=== PATIENT | male | born 1980 | race Caucasian/White ===

== ENCOUNTER → 2021-06-09 | Outpatient (CLI) | payer SELFPAY | LOC: RT 09:17 | PROVIDERS: ATTEND Nurse Practitioner Family | DX: J44.9 Chronic obstructive pulmonary disease, unspecified (principal) | CPT/HCPCS: 94010; 94726; 94729 ==

== ENCOUNTER 2021-06-11 19:58 | Emergency (ER) | payer SELFPAY ==
[~2021-06-11] VITALS: Ht 165 cm; Wt 116.0 kg
--- NOTE | 2021-06-11 20:40 | ED Abdominal Pain ---
General Chief Complaint: Abdominal/GI Problems Stated Complaint: SIDE PAIN Nursing Triage Note: PT STATES 40 MIN ATTENDING AMBULATORY CARE HE BENT OVER TO TIE HIS SHOES WHEN HE EXPERIENCED CRAMPING ABD. PAIN THAT IS UNCHANGED BY POSITION. PT STATES IT FEELS LIKE CONTRACTIONS. DENIES NVD. DENIES COVID SYMPTOMS. Source of Information: Patient Exam Limitations: No Limitations History of Present Illness Date Seen by Provider: Jun 11, 2021 Time Seen by Provider: 20:30 Initial Comments Patient is a 41-year-old male who presents to the emergency room with a chief complaint of right-sided flank pain onset about 45 minutes prior to arrival. Patient states he was bending over to tie his shoes when he had a sudden onset of sharp aching abdominal discomfort. He denies nausea vomiting or diarrhea. States that he has had some "loose stools" for the last 2 weeks. Nothing black or bloody. Denies any urinary complaints such as dysuria, urgency frequency or hematuria. He denies testicular pain or scrotal swelling. Patient states that he has had a couple of hernia repairs in the right side of his abdomen in the past. He denies feeling feverish or having chills. No Covid concerns. Nothing makes the pain any better or any worse. Describes it as "contractions". He states the muscle feels like it is "spasming". On palpation the patient has the most significant discomfort in the right lower quadrant. He does have a little bit of rebound and involuntary guarding. Bowel sounds are present. All other review of systems reviewed and negative except as stated. Timing/Duration: 1 Hour Severity/Quality: Severe, Aching, Cramping Location: RLQ Radiation: No Radiation Activities at Onset: Activity Allergies and Home Medications Allergies Coded Allergies: azithromycin (Verified Allergy, Unknown, 06/11/21) Patient Home Medication List Home Medication List Reviewed: Yes Review of Systems Review of Systems Constitutional: see HPI EENTM: No Symptoms Reported Respiratory: No Symptoms Reported Cardiovascular: No Symptoms Reported Gastrointestinal: Abdominal Pain Genitourinary: No Symptoms Reported Musculoskeletal: no symptoms reported Skin: no symptoms reported Psychiatric/Neurological: No Symptoms Reported All Other Systems Reviewed Negative Unless Noted: Yes Past Jtswpna-Xcojkv-Gwwfuq Hx Patient Social History Tobacco Use?: No Smoking Status: Former Smoker Substance use?: No Alcohol Use?: No Immunizations Up To Date Influenza Vaccine Up-to-Date: No; Not Current Past Medical History Surgery/Hospitalization HX: two hernia repairs. gerd hx Physical Exam Vital Signs Vital Signs - First Documented 06/11/21 20:17 Temp 36.9 Pulse 83 Resp 26 B/P (MAP) 144/98 (113) Pulse Ox 98 O2 Delivery Room Air Capillary Refill : Less Than 3 Seconds Height/Weight/BMI Height: '" Weight: lbs. oz. kg; 42.00 BMI Method: General Appearance: WD/WN, moderate distress HEENT: PERRL/EOMI Respiratory: lungs clear, normal breath sounds, no respiratory distress, no accessory muscle use Cardiovascular: regular rate, rhythm Gastrointestinal: soft, abnormal bowel sounds (Hypoactive), guarding, rebound, tenderness Extremities: normal range of motion, normal inspection, no pedal edema Back: no CVA tenderness Neurologic/Psychiatric: alert, normal mood/affect, oriented x 3 Skin: normal color, warm/dry Progress/Results/Core Measures Results/Orders Lab Results Laboratory Tests Test 06/11/21 20:39 06/11/21 20:52 Range/Units White Blood Count 9.3 4.3-11.0 10^3/uL Red Blood Count 4.84 4.30-5.52 10^6/uL Hemoglobin 16.1 13.3-17.7 g/dL Hematocrit 46 40-54 % Mean Corpuscular Volume 95 80-99 fL Mean Corpuscular Hemoglobin 33 25-34 pg Mean Corpuscular Hemoglobin Concent 35 32-36 g/dL Red Cell Distribution Width 12.3 10.0-14.5 % Platelet Count 274 130-400 10^3/uL Mean Platelet Volume 10.2 9.0-12.2 fL Immature Granulocyte % (Auto) 0 % Neutrophils (%) (Auto) 60 42-75 % Lymphocytes (%) (Auto) 27 12-44 % Monocytes (%) (Auto) 9 0-12 % Eosinophils (%) (Auto) 4 0-10 % Basophils (%) (Auto) 1 0-10 % Neutrophils # (Auto) 5.6 1.8-7.8 10^3/uL Lymphocytes # (Auto) 2.5 1.0-4.0 10^3/uL Monocytes # (Auto) 0.8 0.0-1.0 10^3/uL Eosinophils # (Auto) 0.3 0.0-0.3 10^3/uL Basophils # (Auto) 0.1 0.0-0.1 10^3/uL Immature Granulocyte # (Auto) 0.0 0.0-0.1 10^3/uL Sodium Level 136 135-145 MMOL/L Potassium Level 4.5 3.6-5.0 MMOL/L Chloride Level 103 98-107 MMOL/L Carbon Dioxide Level 21 21-32 MMOL/L Anion Gap 12 5-14 MMOL/L Blood Urea Nitrogen 16 7-18 MG/DL Creatinine 1.38 H 0.60-1.30 MG/DL Estimat Glomerular Filtration Rate 57 BUN/Creatinine Ratio 12 Glucose Level 91 70-105 MG/DL Calcium Level 9.6 8.5-10.1 MG/DL Corrected Calcium 9.4 8.5-10.1 MG/DL Total Bilirubin 0.5 0.1-1.0 MG/DL Aspartate Amino Transf (AST/SGOT) 48 H 5-34 U/L Alanine Aminotransferase (ALT/SGPT) 76 H 0-55 U/L Alkaline Phosphatase 90 40-136 U/L Total Protein 8.4 H 6.4-8.2 GM/DL Albumin 4.3 3.2-4.5 GM/DL Lipase 12 8-78 U/L Urine Color YELLOW Urine Clarity CLEAR Urine pH 6.0 5-9 Urine Specific Morton >=1.030 1.016-1.022 Urine Protein TRACE H NEGATIVE Urine Glucose (UA) NEGATIVE NEGATIVE Urine Ketones NEGATIVE NEGATIVE Urine Nitrite NEGATIVE NEGATIVE Urine Bilirubin NEGATIVE NEGATIVE Urine Urobilinogen 0.2 < = 1.0 MG/DL Urine Leukocyte Esterase NEGATIVE NEGATIVE Urine RBC (Auto) NEGATIVE NEGATIVE Urine RBC NONE /HPF Urine WBC 0-2 /HPF Urine Squamous Epithelial Cells NONE /HPF Urine Renal Epithelial Cells NONE /HPF Urine Crystals NONE /LPF Urine Bacteria NEGATIVE /HPF Urine Casts NONE /LPF Urine Mucus LARGE H /LPF Urine Culture Indicated NO My Orders Orders - PIOTR CHOW MD Ed Iv/Invasive Line Start (06/11/21 20:38) Cbc With Automated Diff (06/11/21 20:38) Comprehensive Metabolic Panel (06/11/21 20:38) Lipase (06/11/21 20:38) Ua Culture If Indicated (06/11/21 20:38) Fentanyl Inj (Sublimaze Injection) (06/11/21 20:45) Ct Abdomen/Pelvis Wo (06/11/21 21:13) Ketorolac Injection (Toradol Injection) (06/11/21 22:00) Medications Given in ED Current Medications Medications Dose Ordered Sig/Cristiana Route Start Time Stop Time Status Last Admin Dose Admin Fentanyl Citrate 50 mcg ONCE ONCE IVP 06/11/21 20:45 06/11/21 20:46 DC 06/11/21 20:44 50 MCG Vital Signs/I&O 06/11/21 20:17 Temp 36.9 Pulse 83 Resp 26 B/P (MAP) 144/98 (113) Pulse Ox 98 O2 Delivery Room Air Blood Pressure Mean: 113 Progress Progress Note : Time: 21:53 Progress Note Patient reexamined, feels a little bit better. Pain is improved. Is asking for little bit more pain medicine will give him some Toradol. CAT scan has been reviewed and no acute intra-abdominal pathology is noted. Urine is clean and there is no evidence of blood. Renal function is normal CBC is normal. I do not have a specific reason for his abdominal pain but reassurance is given to the patient. No clinical or objective findings to warrant further testing from the emergency department. Patient is advised to follow-up with his primary care doctor. He is encouraged to use ibuprofen or Tylenol at home for pain. Will be sent home with some nausea medicine. All questions are sought and answered. Patient is stable for discharge. Diagnostic Imaging Diagonstic Imaging: CT Plain Films/CT/US/NM/MRI: abdomen Comments [facility]. [place], [place] NAME: SUZIE FLORES [facility] REC#: [id number] PT STATUS: REG ER : 1980 PHYSICIAN: PIOTR CHOW MD ADMIT DATE: 06/11/21/ER Draft Date of Exam:06/11/21 CT ABDOMEN/PELVIS WO INDICATION: Right flank pain and right upper quadrant pain. TECHNIQUE: Multiple contiguous axial images were obtained through the abdomen and pelvis without the use of intravenous contrast. Auto Exposure Controls were utilized during the CT exam to meet ALARA standards for radiation dose reduction. COMPARISON: There is no prior study for comparison. FINDINGS: The visualized portions of the lung bases are clear. There is an old calcified node in the right hilum. There is no pleural fluid or free intraperitoneal air. The liver shows prominent diffuse low-density change compatible with fatty infiltration. Liver is mildly enlarged. The spleen, adrenals and pancreas appear normal. The kidneys, bilaterally, are unremarkable with no stone or hydronephrosis. Gallbladder appears normal. There is no retroperitoneal mass or adenopathy. There is no ascites or abnormal fluid question. Visualized bowel loops, including the appendix, appear normal. There is no pelvic mass or lymphadenopathy. There are small bilateral fat-containing inguinal hernias. Bony structures appear unremarkable. IMPRESSION: Mild hepatomegaly with diffuse fatty infiltration of the liver. No abdominal mass or abnormal fluid collection. No sign of bowel obstruction or focal bowel wall thickening. Normal-appearing appendix. There are small bilateral fat-containing inguinal hernias. Dictated on workstation # [id number] Dict: 06/11/212141 Trans: 06/11/212146 [id number] Interpreted by: DUSTIN MARTINEZ MD Electronically signed by: Departure Impression Primary Impression: Abdominal pain Qualified Codes: R10.31 - Right lower quadrant pain Disposition: 01 HOME, SELF-CARE Condition: Stable Departure-Patient Inst. Decision time for Depature: 21:54 Referrals: [facility] [place] Patient Instructions: Abdominal Pain, Adult ED Add. Discharge Instructions: Drink plenty of fluids to stay well-hydrated. I would advise you to take [id number] ibuprofen, 3 tablets which is 600 mg every 6-8 hours as needed for aches and pains. I have sent you home with a prescription for nausea medication. You can take this every 6-8 hours. If you develop a fever with worsening pain, a change in the quality or location of the pain, black or bloody stools, vomiting or any other emergent concerns please do not hesitate to come back to the emergency room for reevaluation. Follow-up with your primary care physician. PIOTR CHOW MD Jun 11, 2021 20:40
[2021-06-11] MEDS ORDERED: fentaNYL INJ 100 MCG/2 ML AMP IVP ONE (20:45)
[2021-06-11 20:48] LABS: BASOPHILS # (AUTO) 0.1 10^3/uL (0.0-0.1); BASOPHILS % (AUTO) 1 % (0-10); EOSINOPHILS # (AUTO) 0.3 10^3/uL (0.0-0.3); EOSINOPHILS % (AUTO) 4 % (0-10); HEMATOCRIT 46 % (40-54); HEMOGLOBIN 16.1 g/dL (13.3-17.7); LYMPHOCYTES # (AUTO) 2.5 10^3/uL (1.0-4.0); LYMPHOCYTES % (AUTO) 27 % (12-44); MEAN CORPUSCULAR HEMOGLOBIN 33 pg (25-34); MEAN CORPUSCULAR HGB CONC 35 g/dL (32-36); MEAN CORPUSCULAR VOLUME 95 fL (80-99); MEAN PLATELET VOLUME 10.2 fL (9.0-12.2); MONOCYTES # (AUTO) 0.8 10^3/uL (0.0-1.0); MONOCYTES % (AUTO) 9 % (0-12); NEUTROPHILS # (AUTO) 5.6 10^3/uL (1.8-7.8); NEUTROPHILS % (AUTO) 60 % (42-75); PLATELET COUNT 274 10^3/uL (130-400); WHITE BLOOD COUNT 9.3 10^3/uL (4.3-11.0)
[2021-06-11 20:57] LABS: BILIRUBIN,URINE NEGATIVE (NEGATIVE); CLARITY,URINE CLEAR; COLOR,URINE YELLOW; GLUCOSE, URINE (UA) NEGATIVE (NEGATIVE); KETONES,URINE NEGATIVE (NEGATIVE); LEUKOCYTE ESTERASE ,URINE NEGATIVE (NEGATIVE); NITRITE,URINE NEGATIVE (NEGATIVE); PROTEIN,URINE TRACE (NEGATIVE)
[2021-06-11 21:03] LABS: BACTERIA,URINE NEGATIVE /HPF; WBC,URINE 0-2 /HPF
[2021-06-11 21:07] LABS: ALBUMIN 4.3 GM/DL (3.2-4.5); BILIRUBIN,TOTAL 0.5 MG/DL (0.1-1.0); CALCIUM 9.6 MG/DL (8.5-10.1); CREATININE SERUM 1.38 MG/DL (0.60-1.30); POTASSIUM 4.5 MMOL/L (3.6-5.0); TOTAL PROTEIN 8.4 GM/DL (6.4-8.2)
--- NOTE | 2021-06-11 21:47 | Diagnostic Imaging Report ---
INDICATION: Right flank pain and right upper quadrant pain. TECHNIQUE: Multiple contiguous axial images were obtained through the abdomen and pelvis without the use of intravenous contrast. Auto Exposure Controls were utilized during the CT exam to meet ALARA standards for radiation dose reduction. COMPARISON: There is no prior study for comparison. FINDINGS: The visualized portions of the lung bases are clear. There is an old calcified node in the right hilum. There is no pleural fluid or free intraperitoneal air. The liver shows prominent diffuse low-density change compatible with fatty infiltration. Liver is mildly enlarged. The spleen, adrenals and pancreas appear normal. The kidneys, bilaterally, are unremarkable with no stone or hydronephrosis. Gallbladder appears normal. There is no retroperitoneal mass or adenopathy. There is no ascites or abnormal fluid question. Visualized bowel loops, including the appendix, appear normal. There is no pelvic mass or lymphadenopathy. There are small bilateral fat-containing inguinal hernias. Bony structures appear unremarkable. IMPRESSION: Mild hepatomegaly with diffuse fatty infiltration of the liver. No abdominal mass or abnormal fluid collection. No sign of bowel obstruction or focal bowel wall thickening. Normal-appearing appendix. There are small bilateral fat-containing inguinal hernias. Dictated by: Dictated on workstation # [id number]
[2021-06-11] MEDS ORDERED: RX-ONDANSETRON 4 MG ODT (ZOFRAN) PPK #4 PO STA (21:55)
[2021-06-11] MEDS ORDERED: KETOROLAC 30 MG/ML VIAL IVP ONE (22:00)
[2021-06-11 22:04] VITALS: BP 146/89
== END 2021-06-11 22:16 | disposition home or self-care (01) ==
LOC: EDUNIT# 19:58 → ER 20:00
DX: R10.31 Right lower quadrant pain (principal); Z87.891 Personal history of nicotine dependence; Z87.19 Personal history of other diseases of the digestive system
CPT/HCPCS: 36415; 74176; 80053; 81000; 83690; 85025

== ENCOUNTER 2021-12-17 04:07 | Emergency (ER) | payer SELFPAY ==
[~2021-12-17] VITALS: Ht 165 cm; Wt 120.0 kg
[2021-12-17] MEDS ORDERED: KETOROLAC 30 MG/ML VIAL IVP STA (04:19)
[2021-12-17] MEDS ORDERED: LACTATED RINGERS 1,000 ML IV ONE (04:30)
[2021-12-17 04:35] LABS: BASOPHILS # (AUTO) 0.1 10^3/uL (0.0-0.1); BASOPHILS % (AUTO) 1 % (0-10); EOSINOPHILS # (AUTO) 0.6 10^3/uL (0.0-0.3); EOSINOPHILS % (AUTO) 5 % (0-10); HEMATOCRIT 47 % (40-54); HEMOGLOBIN 15.8 g/dL (13.3-17.7); LYMPHOCYTES # (AUTO) 2.4 10^3/uL (1.0-4.0); LYMPHOCYTES % (AUTO) 23 % (12-44); MEAN CORPUSCULAR HEMOGLOBIN 33 pg (25-34); MEAN CORPUSCULAR HGB CONC 34 g/dL (32-36); MEAN CORPUSCULAR VOLUME 96 fL (80-99); MEAN PLATELET VOLUME 10.3 fL (9.0-12.2); MONOCYTES # (AUTO) 0.8 10^3/uL (0.0-1.0); MONOCYTES % (AUTO) 8 % (0-12); NEUTROPHILS # (AUTO) 6.5 10^3/uL (1.8-7.8); NEUTROPHILS % (AUTO) 62 % (42-75); PLATELET COUNT 260 10^3/uL (130-400); WHITE BLOOD COUNT 10.5 10^3/uL (4.3-11.0)
--- NOTE | 2021-12-17 04:38 | ED Back Pain ---
General Chief Complaint: Back Problems Stated Complaint: RT SIDE PAIN Source of Information: Patient (AILYN SHELBY ) History of Present Illness Date Seen by Provider: Dec 17, 2021 Time Seen by Provider: 04:18 Initial Comments PT ARRIVES VIA POV STATES AROUND 2300 TONIGHT, HE WENT TO THE BATHROOM AND "DRY HEAVED" AND HAD A SUDDEN PAIN AND A "POP" IN HIS RIGHT FLANK AREA NO RADIATION OF PAIN PAIN IS WORSE WITH ANY MOVEMENT--STATES 9/10 WITH MOVEMENT, AND IMPROVED WITH REST--2/10 LAYING STILL/NOT MOVING NO NAUSEA/VOMITING/DRY HEAVES SINCE THE PAIN BEGAN NO PARESTHESIAS OR MOTOR DEFICITS NO LOSS OF BOWEL/BLADDER CONTROL OR SADDLE ANESTHESIA NO URINARY SYMPTOMS NO ABDOMINAL PAIN OR TESTICULAR PAIN NO FEVER PT ATE AROUND 2200 TONIGHT--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, [place] FRIES, ONION RINGS, [place] WINGS, [place]ACH[place] HAD NAUSEA AND DRY HEAVED X 1 ABOUT AN HOUR AFTER HE ATE, AND THEN HAD THE ABOVE SYMPTOMS PT HAS NOT TAKEN ANYTHING FOR PAIN AT ANY TIME PT WAS SEEN HERE 06/11/21 FOR RIGHT FLANK PAIN--WORK UP AT THAT TIME WAS NEGATIVE PT HAS HISTORY OF CHRONIC BACK PAIN--NO PROBLEMS LATELY Other Comments 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[facility], 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 (AILYN SHELBY DO) Allergies and Home Medications Allergies Coded Allergies: azithromycin (Verified Allergy, Unknown, 06/11/21) Patient Home Medication List Home Medication List Reviewed: Yes (CONNIE ALLEN MD) Cyclobenzaprine HCl (Cyclobenzaprine HCl) 10 Mg Tablet, 10 MG PO BID PRN for SPASMS Prescribed by: CONNIE ALLEN on 12/17/21611 Ketorolac Tromethamine (Ketorolac Tromethamine) 10 Mg Tablet, 10 MG PO Q8H Prescribed by: CONNIE ALLEN on 12/17/21611 Review of Systems Constitutional: no symptoms reported Respiratory: no symptoms reported Cardiovascular: no symptoms reported Gastrointestinal: see HPI Genitourinary: no symptoms reported Musculoskeletal: see HPI Skin: no symptoms reported Psychiatric/Neurological: No Symptoms Reported (AILYN SHELBY DO) Past Ezbpido-Qaueey-Mynlrh Hx Past Medical History Surgery/Hospitalization HX: RIGHT INGUINAL HERNIA REPAIR X 2; two hernia repairs. gerd hx Surgeries: Yes (RIGHT INGUINAL HERNIA REPAIR X 2) Abdominal Respiratory: No Cardiac: Yes Hypertension Neurological: No Genitourinary: No Gastrointestinal: Yes Gastroesophageal Reflux Musculoskeletal: Yes Chronic Back Pain Endocrine: Yes (OBESITY) HEENT: No (GLASSES) Cancer: No Psychosocial: No Integumentary: No Blood Disorders: No (AILYN SHELBY DO) Physical Exam Vital Signs Vital Signs - First Documented 12/17/21 04:16 Temp 37.0 Pulse 94 Resp 18 B/P (MAP) 152/102 (119) Pulse Ox 97 O2 Delivery Room Air (CONNIE ALLEN MD) Vital Signs Capillary Refill : (AILYN SHELBY DO) Height, Weight, BMI Height: '" Weight: lbs. oz. kg; 42.00 BMI Method: General Appearance: No Apparent Distress, WD/WN, Anxious, Obese Neck: Normal Inspection Cardiovascular: Regular Rate, Rhythm, No Murmur Respiratory: Normal Breath Sounds Gastrointestinal: Non Tender, Soft Back: No CVA Tenderness, No Vertebral Tenderness Extremity: Normal Inspection, No Pedal Edema Neurologic/Psychiatric: Alert, Oriented x3, No Motor/Sensory Deficits Skin: Normal Color, Warm/Dry; No Rash (AILYN SHELBY DO) Progress/Results/Core Measures Results/Orders Lab Results Laboratory Tests Test 12/17/21 04:26 12/17/21 04:36 Range/Units White Blood Count 10.5 4.3-11.0 10^3/uL Red Blood Count 4.85 4.30-5.52 10^6/uL Hemoglobin 15.8 13.3-17.7 g/dL Hematocrit 47 40-54 % Mean Corpuscular Volume 96 80-99 fL Mean Corpuscular Hemoglobin 33 25-34 pg Mean Corpuscular Hemoglobin Concent 34 32-36 g/dL Red Cell Distribution Width 13.0 10.0-14.5 % Platelet Count 260 130-400 10^3/uL Mean Platelet Volume 10.3 9.0-12.2 fL Immature Granulocyte % (Auto) 0 % Neutrophils (%) (Auto) 62 42-75 % Lymphocytes (%) (Auto) 23 12-44 % Monocytes (%) (Auto) 8 0-12 % Eosinophils (%) (Auto) 5 0-10 % Basophils (%) (Auto) 1 0-10 % Neutrophils # (Auto) 6.5 1.8-7.8 10^3/uL Lymphocytes # (Auto) 2.4 1.0-4.0 10^3/uL Monocytes # (Auto) 0.8 0.0-1.0 10^3/uL Eosinophils # (Auto) 0.6 H 0.0-0.3 10^3/uL Basophils # (Auto) 0.1 0.0-0.1 10^3/uL Immature Granulocyte # (Auto) 0.0 0.0-0.1 10^3/uL Sodium Level 137 135-145 MMOL/L Potassium Level 4.1 3.6-5.0 MMOL/L Chloride Level 105 98-107 MMOL/L Carbon Dioxide Level 19 L 21-32 MMOL/L Anion Gap 13 5-14 MMOL/L Blood Urea Nitrogen 20 H 7-18 MG/DL Creatinine 1.05 0.60-1.30 MG/DL Estimat Glomerular Filtration Rate 91 BUN/Creatinine Ratio 19 Glucose Level 114 H 70-105 MG/DL Calcium Level 9.0 8.5-10.1 MG/DL Corrected Calcium 8.9 8.5-10.1 MG/DL Total Bilirubin 0.2 0.1-1.0 MG/DL Aspartate Amino Transf (AST/SGOT) 20 5-34 U/L Alanine Aminotransferase (ALT/SGPT) 52 0-55 U/L Alkaline Phosphatase 90 40-136 U/L Total Protein 7.9 6.4-8.2 GM/DL Albumin 4.1 3.2-4.5 GM/DL Urine Color YELLOW Urine Clarity CLEAR Urine pH 5.5 5-9 Urine Specific Deshler >=1.030 1.016-1.022 Urine Protein NEGATIVE NEGATIVE Urine Glucose (UA) NEGATIVE NEGATIVE Urine Ketones NEGATIVE NEGATIVE Urine Nitrite NEGATIVE NEGATIVE Urine Bilirubin NEGATIVE NEGATIVE Urine Urobilinogen 0.2 < = 1.0 MG/DL Urine Leukocyte Esterase NEGATIVE NEGATIVE Urine RBC (Auto) NEGATIVE NEGATIVE Urine RBC NONE /HPF Urine WBC 0-2 /HPF Urine Squamous Epithelial Cells RARE /HPF Urine Crystals NONE /LPF Urine Bacteria TRACE /HPF Urine Casts NONE /LPF Urine Mucus NEGATIVE /LPF Urine Culture Indicated NO Urine Opiates Screen NEGATIVE NEGATIVE Urine Oxycodone Screen NEGATIVE NEGATIVE Urine Methadone Screen NEGATIVE NEGATIVE Urine Propoxyphene Screen NEGATIVE NEGATIVE Urine Barbiturates Screen NEGATIVE NEGATIVE Ur Tricyclic Antidepressants Screen NEGATIVE NEGATIVE Urine Phencyclidine Screen NEGATIVE NEGATIVE Urine Amphetamines Screen NEGATIVE NEGATIVE Urine Methamphetamines Screen NEGATIVE NEGATIVE Urine Benzodiazepines Screen NEGATIVE NEGATIVE Urine Cocaine Screen NEGATIVE NEGATIVE Urine Cannabinoids Screen NEGATIVE NEGATIVE (CONNIE ALLEN MD) Medications Given in ED Current Medications Medications Dose Ordered Sig/Cristiana Route Start Time Stop Time Status Last Admin Dose Admin Lactated Ringer's 1,000 ml @ 0 mls/hr Q0M ONCE IV 12/17/21 04:30 12/17/21 04:31 DC 12/17/21 04:30 0 MLS/HR (CONNIE ALLEN MD) Vital Signs/I&O 12/17/21 12/17/21 04:16 06:43 Temp 37.0 Pulse 94 77 Resp 18 18 B/P (MAP) 152/102 (119) 111/84 Pulse Ox 97 96 O2 Delivery Room Air Room Air (CONNIE ALLEN MD) Progress Progress Note : Progress Note GIVEN IV FLUIDS AND TORADOL (AILYN SHELBY DO) Progress Note : Progress Note Received the patient in signout in the AM pending CT abd/pelv read. Patient resting comfortably. The CT showed nothing acute that would be the cause of his pain. He is feeling better. I believe he is stable for discharge with outpatient follow-up which he is agreeable to. Of note, the CT did show a right lower lung pulmonary nodule. I discussed this with the patient and discussed that he needs to talk to his primary care doctor about this and get repeat CT scan within 6 months to be sure it is stable. The patient is agreeable to this. (CONNIE ALLNE MD) Diagnostic Imaging Diagonstic Imaging: CT (abd/pelv, lumbar spine) Comments [facility] [place], [place] NAME: SUZIE FLORES [facility] REC#: [id number] PT STATUS: REG ER : 1980 PHYSICIAN: AILYN SHELBY DO ADMIT DATE: 12/17/21/ER Draft Date of Exam:12/17/21 CT ABD/PELVIS WO(KIDNEY STONE) EXAMINATION: CT abdomen and pelvis without contrast. TECHNIQUE: Multiple contiguous axial images were obtained through the abdomen and pelvis without the use of intravenous contrast. All CT scans use one or more of the following dose optimizing techniques: automated exposure control, MA and/or KvP adjustment based on patient size and exam type or iterative reconstruction. HISTORY: Flank pain COMPARISON: 06/11/2021 FINDINGS: Limited views of the lower thorax show a 7 mm average diameter right lower lobe pulmonary nodule which is more conspicuous than the prior exam. Liver is moderately steatotic. No focal liver lesions are seen. There is no biliary ductal dilation. Gallbladder is normal. Pancreas is normal. Spleen is normal. Adrenal glands are normal. The kidneys are normal. There is no hydronephrosis. Urinary bladder is normal. No renal or ureteral stones. Bowel is normal in caliber without obstruction or inflammation. There is diverticulosis without diverticulitis. The appendix is normal. No free fluid or air. No abdominal or pelvic lymphadenopathy. Aorta is normal in caliber without aneurysm. There are no suspicious osseus lesions. IMPRESSION: 1. No renal or ureteral stones. 2. Moderate hepatic steatosis. 3. Right lower lobe 7 mm pulmonary nodule. According to the Fleischner Society guidelines: Recommend CT at 6-12 months and then again at 18-24 months (the second CT is optional in a low risk patient) Dictated on workstation # [id number] Dict: 12/17/21 0602 Trans: 12/17/21 0605 ADONIS [id number] Interpreted by: EDGAR ASTUDILLO MD Electronically signed by: [address] [address] [place], [place] NAME: SUZIE FLORES [facility] REC#: [id number] PT STATUS: REG ER : 1980 PHYSICIAN: AILYN SHELBY DO ADMIT DATE: 12/17/21/ER Draft Date of Exam:12/17/21 CT ABD/PELVIS WO(KIDNEY STONE) EXAMINATION: CT abdomen and pelvis without contrast. TECHNIQUE: Multiple contiguous axial images were obtained through the abdomen and pelvis without the use of intravenous contrast. All CT scans use one or more of the following dose optimizing techniques: automated exposure control, MA and/or KvP adjustment based on patient size and exam type or iterative reconstruction. HISTORY: Flank pain COMPARISON: 06/11/2021 FINDINGS: Limited views of the lower thorax show a 7 mm average diameter right lower lobe pulmonary nodule which is more conspicuous than the prior exam. Liver is moderately steatotic. No focal liver lesions are seen. There is no biliary ductal dilation. Gallbladder is normal. Pancreas is normal. Spleen is normal. Adrenal glands are normal. The kidneys are normal. There is no hydronephrosis. Urinary bladder is normal. No renal or ureteral stones. Bowel is normal in caliber without obstruction or inflammation. There is diverticulosis without diverticulitis. The appendix is normal. No free fluid or air. No abdominal or pelvic lymphadenopathy. Aorta is normal in caliber without aneurysm. There are no suspicious osseus lesions. IMPRESSION: 1. No renal or ureteral stones. 2. Moderate hepatic steatosis. 3. Right lower lobe 7 mm pulmonary nodule. According to the Fleischner Society guidelines: Recommend CT at 6-12 months and then again at 18-24 months (the second CT is optional in a low risk patient) Dictated on workstation # [id number] Dict: 12/17/21 0602 Trans: 12/17/21 0605 ADONIS [id number] Interpreted by: EDGAR ASTUDILLO MD Electronically signed by: (CONNIE ALLEN MD) Departure Impression Primary Impression: Flank pain Additional Impression: Pulmonary nodule Disposition: HOME, SELF-CARE Condition: Stable Departure-Patient Inst. Decision time for Depature: 06:23 (CONNIE ALLEN MD) Referrals: LISSETTE COONEY (PCP) Primary Care Physician [facility] (Family) Primary Care Physician Patient Instructions: Flank Pain (DC), Pulmonary Nodule Add. Discharge Instructions: You were seen in the emergency department for lower back/flank pain. Your labs look good and your imaging including a CT scan looks good without any evidence of significant abnormality. Take the ketorolac every 8 hours for the next 3 days with Tylenol 1000 mg every 6-8 hours. I also wrote for a muscle relaxer which you can take. This can make you sleepy which I would recommend not driving with it or operating heavy machinery. After you run out of the ketorolac if you still having pain you can switch it for [id number] ibuprofen 600 mg every 6 hours. Do not take any ibuprofen, naproxen, or aspirin while you are taking the ketorolac though. You also have a 7 mm pulmonary nodule in your right lower lung. This was just accidentally found when we were looking for the cause of your back pain. You need to follow back up with your regular doctor and have a repeat CT scan in 6 months to see if this changes in size. If it gets significantly bigger than the concern is that could be cancerous. Scripts Cyclobenzaprine HCl (Cyclobenzaprine HCl) 10 Mg Tablet 10 MG PO BID PRN for SPASMS for 7 Days, #14 TAB Prov: CONNIE ALLEN MD 12/17/21 Ketorolac Tromethamine (Ketorolac Tromethamine) 10 Mg Tablet 10 MG PO Q8H for 3 Days, #9 TAB Prov: CONNIE ALLEN MD 12/17/21 Work/School Note: Work Release Form Date Seen in the Emergency Department: Dec 17, 2021 Return to Work: Dec 18, 2021 Restrictions: No Restrictions AILYN SHELBY DO Dec 17, 2021 04:38 CONNIE ALLEN MD Dec 17, 2021 06:12
[2021-12-17 04:43] LABS: BILIRUBIN,URINE NEGATIVE (NEGATIVE); CLARITY,URINE CLEAR; COLOR,URINE YELLOW; GLUCOSE, URINE (UA) NEGATIVE (NEGATIVE); KETONES,URINE NEGATIVE (NEGATIVE); LEUKOCYTE ESTERASE ,URINE NEGATIVE (NEGATIVE); NITRITE,URINE NEGATIVE (NEGATIVE); PH,URINE 5.5 (5-9); PROTEIN,URINE NEGATIVE (NEGATIVE)
[2021-12-17 04:52] LABS: ALBUMIN 4.1 GM/DL (3.2-4.5); POTASSIUM 4.1 MMOL/L (3.6-5.0)
[2021-12-17 04:55] LABS: TOTAL PROTEIN 7.9 GM/DL (6.4-8.2)
[2021-12-17 04:57] LABS: BILIRUBIN,TOTAL 0.2 MG/DL (0.1-1.0)
[2021-12-17 04:58] LABS: CREATININE SERUM 1.05 MG/DL (0.60-1.30)
[2021-12-17 05:03] LABS: AMPHETAMINE SCREEN, URINE NEGATIVE (NEGATIVE); BARBITURATE SCREEN URINE NEGATIVE (NEGATIVE); BENZODIAZEPINES SCREEN URINE NEGATIVE (NEGATIVE); CANNABINOID SCREEN, URINE NEGATIVE (NEGATIVE); COCAINE SCREEN URINE NEGATIVE (NEGATIVE); METHADONE STAT NEGATIVE (NEGATIVE); METHAMPHETAMINE SCREEN URINE S NEGATIVE (NEGATIVE); OPIATE SCREEN URINE NEGATIVE (NEGATIVE); TRICYCLIC ANTIDEPRESSANTS SCRE NEGATIVE (NEGATIVE)
[2021-12-17 05:04] LABS: OXYCODONE STAT NEGATIVE (NEGATIVE); PROPOXYPHENE STAT NEGATIVE (NEGATIVE)
[2021-12-17 05:18] LABS: BACTERIA,URINE TRACE /HPF; SQUAMOUS EPITHELIAL CELL,UR RARE /HPF; WBC,URINE 0-2 /HPF
--- NOTE | 2021-12-17 06:03 | Diagnostic Imaging Report ---
EXAMINATION: CT lumbar spine without contrast. TECHNIQUE: Multiple contiguous axial images were obtained through the lumbar spine without the use of intravenous contrast. Sagittal and coronal reformations were then performed. All CT scans use one or more of the following dose optimizing techniques: automated exposure control, MA and/or KvP adjustment based on patient size and exam type or iterative reconstruction. HISTORY: Back pain COMPARISON: None available. FINDINGS: The alignment of the lumbar spine is normal. Vertebral body heights are normal and no fracture is seen. Facet joints are normal. Disk heights are normal. There is no spinal canal stenosis. Limited views of the abdomen and pelvis show no soft tissue abnormality. The aorta is normal. IMPRESSION: 1. No lumbar spine fracture. Dictated by: Dictated on workstation # [id number]
--- NOTE | 2021-12-17 06:06 | Diagnostic Imaging Report ---
EXAMINATION: CT abdomen and pelvis without contrast. TECHNIQUE: Multiple contiguous axial images were obtained through the abdomen and pelvis without the use of intravenous contrast. All CT scans use one or more of the following dose optimizing techniques: automated exposure control, MA and/or KvP adjustment based on patient size and exam type or iterative reconstruction. HISTORY: Flank pain COMPARISON: 06/11/2021 FINDINGS: Limited views of the lower thorax show a 7 mm average diameter right lower lobe pulmonary nodule which is more conspicuous than the prior exam. Liver is moderately steatotic. No focal liver lesions are seen. There is no biliary ductal dilation. Gallbladder is normal. Pancreas is normal. Spleen is normal. Adrenal glands are normal. The kidneys are normal. There is no hydronephrosis. Urinary bladder is normal. No renal or ureteral stones. Bowel is normal in caliber without obstruction or inflammation. There is diverticulosis without diverticulitis. The appendix is normal. No free fluid or air. No abdominal or pelvic lymphadenopathy. Aorta is normal in caliber without aneurysm. There are no suspicious osseus lesions. IMPRESSION: 1. No renal or ureteral stones. 2. Moderate hepatic steatosis. 3. Right lower lobe 7 mm pulmonary nodule. According to the Fleischner Society guidelines: Recommend CT at 6-12 months and then again at 18-24 months (the second CT is optional in a low risk patient) Dictated by: Dictated on workstation # [id number]
[2021-12-17] MEDS ORDERED: KETO10TA PO (06:12)
[2021-12-17] MEDS ORDERED: CYCL10TA25 PO (06:12)
[2021-12-17 06:43] VITALS: BP 111/84
--- NOTE | 2021-12-17 07:34 | Diagnostic Imaging Report ---
EXAMINATION: Abdomen 1 view HISTORY: Abdominal pain COMPARISON: None available. FINDINGS: Bowel gas pattern is normal. No dilated bowel or free air. IMPRESSION: 1. Normal bowel gas pattern. Dictated by: Dictated on workstation # [id number]
== END 2021-12-17 06:45 | disposition home or self-care (01) ==
LOC: EDUNIT# 04:07 → ER 04:12
DX: R10.9 Unspecified abdominal pain (principal); R91.1 Solitary pulmonary nodule; I10 Essential (primary) hypertension; E66.9 Obesity, unspecified; Z87.19 Personal history of other diseases of the digestive system; Z68.41 Body mass index [BMI] 40.0-44.9, adult
CPT/HCPCS: 36415; 72131; 74018; 74176; 80053; 80306; 81000; 85025

== ENCOUNTER 2022-03-13 07:11 | Emergency (ER) | payer SELFPAY ==
[~2022-03-13] VITALS: Ht 165.1 cm; Wt 117.9 kg
[~2022-03-13 07:11] MED LIST: CYCL10TA25 PO; KETO10TA PO
[2022-03-13] MEDS ORDERED: IBUPROFEN 800 MG (MOTRIN) TAB PO ONE (07:30)
--- NOTE | 2022-03-13 07:35 | ED Lower Extremity ---
General Stated Complaint: R ANKLE PAIN / INJ Source: patient Exam Limitations: no limitations History of Present Illness Date Seen by Provider: March 13, 2022 Time Seen by Provider: 07:22 Initial Comments Patient presents ER by private conveyance with his significant other and chief complaint of pain and swelling in his right ankle since yesterday when he tr ipped over a parking barrier in a parking lot. He says he inverted his foot and landed on his ankle. He was unable to bear weight on the foot immediately afterwards. He had no previous surgery or injury to this ankle. He is not on blood thinners. He did not strike his head nor lose consciousness. He has been using Excedrin for his pain as well as ice. He also stubbed the great toe on his contralateral foot but is having minimal irritation. No history of diabetes Allergies and Home Medications Allergies Coded Allergies: azithromycin (Verified Allergy, Unknown, 06/11/21) Patient Home Medication List Home Medication List Reviewed: Yes Cefdinir (Cefdinir) 300 Mg Capsule, 300 MG PO BID Prescribed by: RAJIV BROWNING on 03/13/22 0739 Cyclobenzaprine HCl (Cyclobenzaprine HCl) 10 Mg Tablet, 10 MG PO BID PRN for SPASMS Prescribed by: CONNIE ALLEN on 12/17/21 0612 Ketorolac Tromethamine (Ketorolac Tromethamine) 10 Mg Tablet, 10 MG PO Q8H Prescribed by: CONNIE ALLEN on 12/17/21 0612 Review of Systems Constitutional: No chills, No diaphoresis EENTM: No ear discharge, No ear pain Respiratory: No cough, No short of breath Cardiovascular: No chest pain, No edema Gastrointestinal: No abdominal pain, No nausea Genitourinary: No discharge, No dysuria All Other Systems Reviewed Negative Unless Noted: Yes Past Gbyfxdy-Odiecr-Esdqzp Hx Patient Social History Tobacco Use?: No Use of E-Cig and/or Vaping dev: No Substance use?: No Immunizations Up To Date First/Initial COVID19 Vaccinat: JUN 2021 Past Medical History Surgery/Hospitalization HX: RIGHT INGUINAL HERNIA REPAIR X 2; two hernia repairs. gerd hx Surgeries: Yes (RIGHT INGUINAL HERNIA REPAIR X 2) Abdominal Respiratory: No Cardiac: Yes Hypertension Neurological: No Genitourinary: No Gastrointestinal: Yes Gastroesophageal Reflux Musculoskeletal: Yes Chronic Back Pain Endocrine: Yes (OBESITY) HEENT: No (GLASSES) Cancer: No Psychosocial: No Integumentary: No Blood Disorders: No Physical Exam Vital Signs Vital Signs - First Documented 03/13/22 07:26 Pulse 97 Resp 16 B/P (MAP) 130/90 (103) Pulse Ox 96 O2 Delivery Room Air Capillary Refill : Height, Weight, BMI Height: '" Weight: lbs. oz. kg; 44.00 BMI Method: General Appearance: WD/WN, mild distress Neck: full range of motion, normal inspection Cardiovascular: normal peripheral pulses, regular rate, rhythm Respiratory: no respiratory distress, no accessory muscle use Legs: bilateral leg non-tender, bilateral leg normal inspection, bilateral leg normal range of motion, bilateral leg no evidence of injury Ankles: left ankle non-tender, left ankle normal inspection, left ankle normal range of motion, left ankle no evidence of injury; right ankle bone tenderness (Bilateral posterior malleoli), right ankle ecchymosis, right ankle joint effusion, right ankle limited range of motion, right ankle pain, right ankle soft tissue tenderness, right ankle swelling Feet: left foot non-tender, left foot normal range of motion, left foot nail injury (Fractured toenail and dried blood on the great toe) Neurologic/Psychiatric: alert, normal mood/affect, oriented x 3 Skin: normal color, warm/dry Progress/Results/Core Measures Results/Orders My Orders Orders - RAJIV BROWNING Ankle, Right, 3 Views (03/13/22 07:30) Ibuprofen Tablet (Motrin Tablet) (03/13/22 07:30) Medications Given in ED Current Medications Medications Dose Ordered Sig/Cristiana Route Start Time Stop Time Status Last Admin Dose Admin Ibuprofen 800 mg ONCE ONCE PO 03/13/22 07:30 03/13/22 07:31 DC 03/13/22 07:49 800 MG Vital Signs/I&O 03/13/22 07:26 Pulse 97 Resp 16 B/P (MAP) 130/90 (103) Pulse Ox 96 O2 Delivery Room Air Progress Progress Note : Time: 07:33 Progress Note Ice, Motrin, elevation and plain films. Warned him about signs of infection and will send out a prescription for antibiotics if his great toe starts to turn red hot or swollen. Diagnostic Imaging Diagonstic Imaging: Xray Plain Films/CT/US/NM/MRI: ankle (r) Comments [facility]. [place], [place] NAME: SUZIE FLORES [facility] REC#: [id number] PT STATUS: REG ER : 1980 PHYSICIAN: RAJIV BROWNING MD ADMIT DATE: 03/13/22/ER Signed Date of Exam:03/13/22 ANKLE, RIGHT, 3 VIEWS INDICATION: Right ankle injury with pain AP, oblique and lateral views of the right ankle are obtained. There is rather extensive swelling which is most pronounced laterally. No acute fracture or malalignment is identified. There is no lytic or sclerotic lesion. IMPRESSION: Extensive ankle swelling is present which may indicate underlying ligamentous injury. No acute osseous abnormality is identified. Dictated by: Dictated on workstation # [id number] Dict: 03/13/22 0755 Trans: 03/13/22 0837 [facility] [id number] Interpreted by: WILMRE BLACKWOOD MD Electronically signed by: WILMER BLACKWOOD MD 03/13/22 0837 Reviewed: Reviewed by Me Departure Impression Primary Impression: Sprained ankle Qualified Codes: S93.401A - Sprain of unspecified ligament of right ankle, initial encounter Disposition: 01 HOME, SELF-CARE Condition: Stable Departure-Patient Inst. Decision time for Depature: 09:08 [place]errals: [facility] [place] Primary Care Physician LISSETTE COONEY (Family) Primary Care Physician LISSETTE AZAR DPM CARMINE QUEVEDO DPM Patient Instructions: Ankle Sprain (DC) Add. Discharge Instructions: Rest your ankle and use the crutches as necessary for the next 1 to 2 weeks. Weightbearing as tolerated. Wrap your ankle with a compressive bandage such as an Antonio wrap. Elevate your ankle above the level of your heart while not in use. Ibuprofen 800 mg every 8 hours as needed for pain. Tylenol 1000 mg every 8 hours as needed for pain. Topical creams such as icy hot or capsaicin oil can be helpful for pain. Fill the prescription for antibiotics if your great toe becomes inflamed, red, swollen or has drainage. Then make an appointment to follow-up with your doctor to have it reexamined. If you are still having significant pain and swelling in 1 to 2 weeks then follow-up with a supervisor vacuum metalizing or your primary care doctor for reexamination. Keep your left foot clean with regular soap and water. Scripts Cefdinir (Cefdinir) 300 Mg Capsule 300 MG PO BID for 7 Days, #14 CAP 0 Refills Prov: RAJIV BROWNING 03/13/22 Work/School Note: Work Release Form Date Seen in the Emergency Department: March 13, 2022 Return to Work: March 16, 2022 Restrictions: Need Release from Doctor Other Restrictions Listed Below: May use crutches as necessary until . RAJIV BROWNING March 13, 2022 07:35
[2022-03-13] MEDS ORDERED: CEFD300C3 PO (07:39)
--- NOTE | 2022-03-13 08:04 | Diagnostic Imaging Report ---
INDICATION: Right ankle injury with pain AP, oblique and lateral views of the right ankle are obtained. There is rather extensive swelling which is most pronounced laterally. No acute fracture or malalignment is identified. There is no lytic or sclerotic lesion. IMPRESSION: Extensive ankle swelling is present which may indicate underlying ligamentous injury. No acute osseous abnormality is identified. Dictated by: Dictated on workstation # [id number]
[2022-03-13 09:35] VITALS: BP 125/88
== END 2022-03-13 09:35 | disposition home or self-care (01) ==
LOC: EDUNIT# 07:11 → ER 07:12
DX: S93.401A Sprain of unspecified ligament of right ankle, initial encounter (principal); E66.9 Obesity, unspecified; W18.49XA Other slipping, tripping and stumbling without falling, initial encounter; Y92.481 Parking lot as the place of occurrence of the external cause
CPT/HCPCS: 73610

== ENCOUNTER → 2022-03-31 | Outpatient (CLI) | payer OTHER ==
[~2022-03-31] MED LIST changes: +CEFD300C3 PO
== END ==
LOC: CARD 12:00
PROVIDERS: ATTEND Physician Assistant
DX: E78.2 Mixed hyperlipidemia (principal); G47.33 Obstructive sleep apnea (adult) (pediatric); E66.01 Morbid (severe) obesity due to excess calories; R03.0 Elevated blood-pressure reading, without diagnosis of hypertension
CPT/HCPCS: 93306

== ENCOUNTER → 2022-04-15 | Outpatient (CLI) | payer OTHER ==
[~2022-04-15] VITALS: Ht 165 cm; Wt 120.0 kg
[~2022-04-15] MED LIST changes: +CATHETER FLUSH 10 ML SYR IVP PRN; +REGADENOSON 0.4 MG/5 ML SYR (LEXISCAN) IV ONE
[2022-04-15 13:16] VITALS: BP 137/86
== END ==
LOC: CARD 12:30
PROVIDERS: ATTEND Physician Assistant
DX: G47.33 Obstructive sleep apnea (adult) (pediatric) (principal); E78.2 Mixed hyperlipidemia; E66.01 Morbid (severe) obesity due to excess calories
CPT/HCPCS: 78452; 93017; A9502

== ENCOUNTER 2022-04-29 10:00 | Day surgery (SDC) | payer OTHER ==
[~2022-04-29] VITALS: Ht 165.1 cm; Wt 120.9 kg
[2022-04-29] VITALS (9 sets, daily range): BP systolic 104–133; BP diastolic 55–86
[2022-04-29 08:31] LABS: HEMATOCRIT 47 % (40-54); HEMOGLOBIN 16.5 g/dL (13.3-17.7); MEAN CORPUSCULAR HEMOGLOBIN 33 pg (25-34); MEAN CORPUSCULAR HGB CONC 35 g/dL (32-36); MEAN CORPUSCULAR VOLUME 94 fL (80-99); MEAN PLATELET VOLUME 10.1 fL (9.0-12.2); PLATELET COUNT 260 10^3/uL (130-400); WHITE BLOOD COUNT 11.6 10^3/uL (4.3-11.0)
[2022-04-29 08:31] LABS: BILIRUBIN,URINE NEGATIVE (NEGATIVE); CLARITY,URINE CLEAR; COLOR,URINE YELLOW; GLUCOSE, URINE (UA) NEGATIVE (NEGATIVE); KETONES,URINE NEGATIVE (NEGATIVE); LEUKOCYTE ESTERASE ,URINE NEGATIVE (NEGATIVE); NITRITE,URINE NEGATIVE (NEGATIVE); PH,URINE 5.5 (5-9); PROTEIN,URINE TRACE (NEGATIVE)
--- NOTE | 2022-04-29 08:32 | Diagnostic Imaging Report ---
Indication: Pre-heart catheterization. Time of Exam: 8:16 AM No prior studies are available for comparison. The heart size normal. Right hemidiaphragm is mildly elevated. Lungs are clear. The pulmonary vascularity is normal. No infiltrate, effusion or pneumothorax is detected. Impression: No acute cardiopulmonary process is detected. Dictated by: Dictated on workstation # [id number]
[2022-04-29 08:41] LABS: ALBUMIN 4.2 GM/DL (3.2-4.5)
[2022-04-29 08:42] LABS: CALCIUM 9.5 MG/DL (8.5-10.1); INR 0.9 (0.8-1.4); PROTHROMBIN TIME PATIENT 12.7 SEC (12.2-14.7)
[2022-04-29 08:43] LABS: TOTAL PROTEIN 7.8 GM/DL (6.4-8.2)
[2022-04-29 08:45] LABS: BILIRUBIN,TOTAL 0.5 MG/DL (0.1-1.0)
[2022-04-29 08:47] LABS: CREATININE SERUM 1.11 MG/DL (0.60-1.30)
[2022-04-29 08:48] LABS: BACTERIA,URINE FEW /HPF; SQUAMOUS EPITHELIAL CELL,UR 0-2 /HPF
--- NOTE | 2022-04-29 09:57 | Conscious Sedation/ASA ---
Conscious Sedation Pre-Proced Time 09:57 ASA Score 3 For ASA 3 and 4: Consider anesthesia and medical clearance. Also, for patients with a history of failed moderate sedation consider anesthesia. Airway Lungs Heart ASA score ASA 1: a normal healthy patient ASA 2: a patient with a mild systemic disease (mid diabetes, controlled hypertension, obesity x ASA 3: a patient with a severe systemic disease that limits activity (angina, COPD, prior Myocardial infarction) ASA 4: a patient with an incapacitating disease that is a constant threat to life (CHF, renal failure) ASA 5: a moribund patient not expected to survive 24 hrs. (ruptured aneurysm) ASA 6: a declared brain- patient whose organs are being harvested. For emergent operations, add the letter E after the classification Mallampati Classification Grade 3 Sedation Plan Analgesia, Amnesia, Plan communicated to team members, Discussed options with patient/fam, Discussed risks with patient/fam The patient is an appropriate candidate to undergo the planned procedure, sedation, and anesthesia. The patient immediately re-assessed prior to indication. LEROY ORDAZ MD Apr 29, 2022 09:57
[~2022-04-29 10:00] MED LIST changes: -CATHETER FLUSH 10 ML SYR IVP PRN; +HEParin (CATH LAB) 2,000 ML IV ONE; +HEParin 1000 UNIT/ML (10ML VIAL) FOR BOLUS ONE; +LIDOCAINE 1% INJ 20 ML VIAL ONE; +LISI10TA25 PO; +MIDAZOLAM 5 MG/5 ML (VERSED) VIAL ONE; +NITRO DRIP 25000 MCG/D5W 250 ML IV ONE; +NS IV 1000 ML 1,000 ML IV SCH; +NS IV 1000 ML 1,000 ML ONE; +PANT20TA2 PO; -REGADENOSON 0.4 MG/5 ML SYR (LEXISCAN) IV ONE; +RT-ALBUINH IH; +VERAPAMIL 5 MG/2 ML (CALAN) VIAL IV ONE; +fentaNYL INJ 100 MCG/2 ML AMP ONE
[2022-04-29] MEDS ORDERED: ATOR10TA PO (10:49)
--- NOTE | 2022-04-29 10:50 | Discharge Inst-Post CATH ---
Discharge Inst-CATH/EP Problems Reviewed?: Yes Post Cardiac Cath/EP D/C Inst Follow Up/Plan Appointment with Dr. Robles's office and 2 to 4 weeks Start aspirin 81 mg daily <b>CARDIAC CATH/EP PROCEDURE DISCHARGE INSTRUCTIONS</b> ACTIVITY * Go Home directly and rest. * Limit activity of the leg (or wrist if it was used) for 7 days including aerobics, swimming, jogging, bicycling, etc. * Restrict stair-climbing for 7 days if possible, if not, climb up with your non-cath leg, then bring together on the same step. * Avoid lifting, pushing, pulling or excessive movement of the affected extremity for 7 days. * Customary sexual activity may be resumed after 2 days-use caution not to use a position that strains or causes pain to the affected extremity. * No driving for 24 hours. * NO SMOKING. * Avoid straining for bowel movements for 7 days. * Gentle walking on level ground is allowed. * Returning to work will depend on the type of procedure and the results. Your doctor will discuss this with you. CALL YOUR DOCTOR FOR ANY OF THE FOLLOWING: *If bleeding from the puncture site occurs- Apply gentle pressure to site with clean cloth and call your doctor or EMS. * If a knot or lump forms under the skin, increases in size, or causes pain. * If bruising appears to be worsening or moving further down your leg instead of disappearing. * Temperature above 101 F. CARE OF YOUR GROIN INCISION; * Bruising or purple discoloration of the skin near the puncture site is common. * You may shower only, no bathtub bathing for 5 days. Be careful to avoid slipping as your leg may feel stiff. * If a closure device was used on your femoral artery, please see the attached guide regarding care of the device and your leg. * Leave dressing on FOR 24 hours. CARE OF YOUR WRIST INCISION; * Bruising or purple discoloration of the skin near the puncture site is common. * You may shower. * DO NOT submerge wrist. * Leave dressing on FOR 24 hours. LEROY ROBLES MD Apr 29, 2022 10:50
--- NOTE | 2022-04-29 10:53 | Cardiac Cath Report ---
Cardiac Cath Report Physician (s)/Energy Technician (s) Physician LEROY ORDAZ MD Pre-Procedure Diagnosis Pre-Procedure Diagnosis: Coronary artery disease Post-Procedure Note Procedure Start Date: Apr 29, 2022 Name of Procedure: Coronary angiogram Findings/Procedure Note PROCEDURE NOTE: 42-year-old gentleman with hypertension, hyperlipidemia and chest pain, had an abnormal stress test, scheduled for cardiac catheterization possible PTCA. After explaining the procedure to the patient, all pros and cons were explained, all questions were answered. The patient signed the consent and then he was placed on the cardiac catheterization laboratory. Groin was prepped SL fashion local anesthesia was used. Sheath placed in the right radial artery, [place] catheter was advanced and engaged the right and left coronary system, did not cross the aortic valve. At the end of the procedure the sheath was removed. Vascular band was used FINDINGS: Hemodynamics LV was not measured Aorta 108/71 mean of 87 ANATOMY: Left Main is free of obstructive disease Left Anterior Descending has mild disease nonobstructive disease with Left Circumflex has mild disease with mild diffuse ectasia nonobstructive disease Right Coronary Artery is a large dominant artery with diffuse ectasia and slow flow in the right coronary artery due to small vessel disease nonobstructive disease CONCLUSION: 1. Coronary ectasia with large dominant right coronary artery and diffuse ectasia with small vessel disease, slow flow in the right coronary artery and the circumflex artery. 2. Mild disease in the LAD nonobstructive disease DISCUSSION AND RECOMMENDATION: Patient is maintained on lisinopril, adding Lipitor, adding aspirin 81 mg daily. Maximizing medical therapy in addition to weight loss and exercise Anesthesia Type: Conscious Sedation Estimated blood loss (mL): 10 ml Contrast Amount: 42 ml Total Radiation Dose: 572 mGy Post-Procedure Diagnosis Post-operative diagnosis: Chest pain Coronary artery disease Hypertension Hyperlipidemia LEROY ORDAZ MD Apr 29, 2022 10:53
[2022-04-29] MEDS ORDERED: NS IV 1000 ML 1,000 ML IV SCH (11:00)
== END 2022-04-29 13:40 | disposition home or self-care (01) ==
LOC: CATH 10:00 → SDC 11:01 → CATH 13:40
PROVIDERS: ATTEND Internal Medicine Cardiovascular Disease
DX: I25.10 Atherosclerotic heart disease of native coronary artery without angina pectoris (principal); I10 Essential (primary) hypertension; E78.5 Hyperlipidemia, unspecified; K21.9 Gastro-esophageal reflux disease without esophagitis; J45.909 Unspecified asthma, uncomplicated; I65.23 Occlusion and stenosis of bilateral carotid arteries; F17.210 Nicotine dependence, cigarettes, uncomplicated; Z88.1 Allergy status to other antibiotic agents; Z79.899 Other long term (current) drug therapy
CPT/HCPCS: 71045; 80053; 80061; 81000; 85027; 85610; 85730; 87077; 87081; 87088; 93005; 93454; C1894; 36415

== ENCOUNTER 2023-05-10 18:32 | Emergency (ER) | payer SELFPAY ==
[~2023-05-10] VITALS: Ht 165.1 cm; Wt 127.0 kg
[~2023-05-10 18:32] MED LIST changes: +ALBU8.5H6 IH; +ATOR10TA PO; -HEParin (CATH LAB) 2,000 ML IV ONE; -HEParin 1000 UNIT/ML (10ML VIAL) FOR BOLUS ONE; -LIDOCAINE 1% INJ 20 ML VIAL ONE; -MIDAZOLAM 5 MG/5 ML (VERSED) VIAL ONE; -NITRO DRIP 25000 MCG/D5W 250 ML IV ONE; -NS IV 1000 ML 1,000 ML IV SCH; -NS IV 1000 ML 1,000 ML ONE; -RT-ALBUINH IH; -VERAPAMIL 5 MG/2 ML (CALAN) VIAL IV ONE; -fentaNYL INJ 100 MCG/2 ML AMP ONE
[2023-05-10] MEDS ORDERED: ASPIRIN 81 MG CHEW (CHILDREN'S ASA) PO ONE (18:45)
[2023-05-10] MEDS ORDERED: NITROGLYCERIN 0.4 MG SL TABS BTL 25'S SL PRN (18:45)
--- NOTE | 2023-05-10 18:55 | ED General ---
General Chief Complaint: General Problems/Pain Stated Complaint: RIGHT SHOULDER PAIN/LEFT HAND NUMBNESS/SOA/FATIGUE Nursing Triage Note: PT AMB TO RM 7 WITH CC OF RIGHT SHOULDER PAIN, LEFT HAND NUMBNESS, AND SOB. PT WAS SEEN AT [facility] AND REFERED TO ER. DENISES CP. Source of Information: Patient History of Present Illness Date Seen by Provider: May 10, 2023 Time Seen by Provider: 18:40 Initial Comments PT ARRIVES VIA POV --SENT HERE FROM [facility]. NO CALL FROM THEM PT STATES SINCE 0900 TODAY, HE HAS BEEN HAVING RIGHT SHOULDER PAIN--"LIKE SOMEBODY'S SQUEEZING IT ON THE INSIDE" ALSO HAS NUMBNESS TO HIS LEFT ARM--FROM HIS ELBOW TO HIS HAND. NO MOTOR DEFICITS C/O "FALLING ASLEEP ALOT" TODAY NO CHEST PAIN + SHORTNESS OF BREATH + SWELLING IN LEFT FOOT NO NAUSEA/VOMITING NO FEVER/SWEATS/CHILLS NO PALPITATIONS NO DIZZINESS OR SYNCOPE NO COUGH NO HEADACHE NO DIZZINESS NO NECK PAIN HAS NOT TAKEN ANYTHING FOR PAIN NO HISTORY OF SIMILAR PT HAS HTN, HYPERLIPIDEMIA, ASTHMA/COPD, CAD--NO INTERVENTION. HAS HAD CARDIAC CATH IN PAST SMOKES 1 1/2 PPD, HX ETOH ABUSE, AND METHAMPHETAMINE AND MARIJUANA USE. DENIES IV DRUG USE PCP: [facility] MEDICAL STAFF SERVICES MANAGER: DR. ORDAZ Allergies and Home Medications Allergies Coded Allergies: azithromycin (Verified Allergy, Unknown, 06/11/21) Patient Home Medication List Home Medication List Reviewed: Yes Albuterol Sulfate (Ventolin Hfa) 1 Puff Puff, 2 PUFF IH Q4H PRN for SHORTNESS OF BREATH, (Reported) Entered as Reported by: LEVON RODRIGUEZ on 04/29/22836 Atorvastatin Calcium (Lipitor) 10 Mg Tablet, 10 MG PO DAILY Prescribed by: LEROY ORDAZ on 04/29/22 1049 Lisinopril (Lisinopril) 10 Mg Tablet, 10 MG PO DAILY, (Reported) Entered as Reported by: LEVON RODRIGUEZ on 04/29/22836 Pantoprazole Sodium (Protonix) 20 Mg Tablet.dr 20 MG PO DAILY, (Reported) Entered as Reported by: LEVON RODRIGUEZ on 04/29/22 08 Review of Systems Review of Systems Constitutional: No chills, No diaphoresis, No dizziness, No fever; malaise EENTM: no symptoms reported Respiratory: see HPI; No cough; short of breath Cardiovascular: No chest pain; edema; No palpitations, No syncope, No vascular heart diseas Gastrointestinal: no symptoms reported Genitourinary: no symptoms reported Musculoskeletal: see HPI Skin: no symptoms reported Psychiatric/Neurological: See HPI Hematologic/Lymphatic: No Symptoms Reported Immunological/Allergic: no symptoms reported Past Ienhsuz-Ecwgyt-Rrqwrp Hx Patient Social History Tobacco Use?: Yes Tobacco type used: Cigarettes Smoking Status: Former Smoker Substance use?: Yes Alcohol Use?: Yes Immunizations Up To Date First/Initial COVID19 Vaccinat: JUN 2021 Second COVID19 Vaccination [place]: JUN 2021 Third COVID19 Vaccination Date: JUN 2021 Past Medical History Surgery/Hospitalization HX: RIGHT INGUINAL HERNIA REPAIR X 2; two hernia repairs. gerd hx Surgeries: Yes (RIGHT INGUINAL HERNIA REPAIR X 2; VENTRAL HERNIA REPAIR;SKIN GRAFTS L LEG) Abdominal Respiratory: Yes Asthma, Chronic Bronchitis, Sleep Apnea, COPD Cardiac: Yes Hypertension, Syncope Neurological: No Genitourinary: Yes UTI (peds) Gastrointestinal: Yes (FATTY LIVER DISEASE) Gastroesophageal Reflux, Liver Disease/Jaundice, Diverticulosis Musculoskeletal: Yes Chronic Back Pain Endocrine: Yes (OBESITY) HEENT: No (GLASSES) Cancer: No Psychosocial: No Integumentary: Yes ([place]DR[place] TO LEFT LEG WITH SKIN GRAFTS) Blood Disorders: No Family Medical History SOCIAL HISTORY: -SMOKES 1 1/2 PPD -ETOH--HX OF HEAVY USE, CLAIMS NONE FOR YEARS -DRUGS--HX OF SMOKING METH AND THC, DENIES IV USE, CLAIMS NONE FOR YEARS Physical Exam Vital Signs Vital Signs - First Documented 05/10/23 18:39 Temp 37.4 Pulse 75 Resp 14 B/P (MAP) 145/105 (118) Pulse Ox 96 O2 Delivery Room Air Capillary Refill : Height, Weight, BMI Height: '" Weight: lbs. oz. kg; 46.00 BMI Method: General Appearance: No Apparent Distress, WD/WN, Obese, Other (SMILING, TALKATIVE. DOES NOT APPEAR ILL OR TO BE IN ANY DISCOMFORT OR DISTRESS) HEENT: PERRL/EOMI Neck: Full Range of Motion, Normal Inspection, Non Tender, Supple; No Carotid Bruit, No JVD Respiratory: Chest Non Tender, Normal Breath Sounds, No Accessory Muscle Use, No Respiratory Distress Cardiovascular: Regular Rate, Rhythm, No Edema, No JVD, No Murmur, Normal Peripheral Pulses Gastrointestinal: Non Tender, Soft Back: No CVA Tenderness Extremity: Normal Capillary Refill, Normal Range of Motion, Non Tender, No Calf Tenderness, Pedal Edema (TRACE LEFT ANKLE EDEMA) Neurologic/Psychiatric: Alert, Oriented x3, No Motor/Sensory Deficits, Normal Mood/Affect, hospitalist nocturnist physician II-XII Norm as Tested Skin: Normal Color, Warm/Dry Progress/Results/Core Measures Suspected Sepsis SIRS Temperature: Pulse: 75 Respiratory Rate: 14 Laboratory Tests 05/10/23 18:48: White Blood Count 8.5 Blood Pressure 145 /105 Mean: 118 Laboratory Tests 05/10/23 18:48: Creatinine 1.01, INR Comment 0.9, Platelet Count 246, Total Bilirubin 0.3 Results/Orders Lab Results Laboratory Tests Test 05/10/23 18:48 05/10/23 18:58 05/10/23 19:53 Range/Units White Blood Count 8.5 4.3-11.0 10^3/uL Red Blood Count 4.74 4.30-5.52 10^6/uL Hemoglobin 15.4 13.3-17.7 g/dL Hematocrit 45 40-54 % Mean Corpuscular Volume 95 80-99 fL Mean Corpuscular Hemoglobin 33 25-34 pg Mean Corpuscular Hemoglobin Concent 34 32-36 g/dL Red Cell Distribution Width 12.1 10.0-14.5 % Platelet Count 246 130-400 10^3/uL Mean Platelet Volume 10.0 9.0-12.2 fL Immature Granulocyte % (Auto) 0 % Neutrophils (%) (Auto) 61 42-75 % Lymphocytes (%) (Auto) 26 12-44 % Monocytes (%) (Auto) 8 0-12 % Eosinophils (%) (Auto) 4 0-10 % Basophils (%) (Auto) 1 0-10 % Neutrophils # (Auto) 5.2 1.8-7.8 10^3/uL Lymphocytes # (Auto) 2.2 1.0-4.0 10^3/uL Monocytes # (Auto) 0.7 0.0-1.0 10^3/uL Eosinophils # (Auto) 0.3 0.0-0.3 10^3/uL Basophils # (Auto) 0.1 0.0-0.1 10^3/uL Immature Granulocyte # (Auto) 0.0 0.0-0.1 10^3/uL Prothrombin Time 12.7 12.2-14.7 SEC INR Comment 0.9 0.8-1.4 Activated Partial Thromboplast Time 27 24-35 SEC D-Dimer < 0.27 0.00-0.49 UG/ML Sodium Level 137 135-145 MMOL/L Potassium Level 4.1 3.6-5.0 MMOL/L Chloride Level 102 98-107 MMOL/L Carbon Dioxide Level 26 21-32 MMOL/L Anion Gap 9 5-14 MMOL/L Blood Urea Nitrogen 13 7-18 MG/DL Creatinine 1.01 0.60-1.30 MG/DL Estimat Glomerular Filtration Rate 94 BUN/Creatinine Ratio 13 Glucose Level 83 70-105 MG/DL Calcium Level 9.3 8.5-10.1 MG/DL Corrected Calcium 9.4 8.5-10.1 MG/DL Magnesium Level 2.2 1.6-2.4 MG/DL Total Bilirubin 0.3 0.1-1.0 MG/DL Aspartate Amino Transf (AST/SGOT) 27 5-34 U/L Alanine Aminotransferase (ALT/SGPT) 50 0-55 U/L Alkaline Phosphatase 79 40-136 U/L Total Creatine Kinase 153 30-200 U/L Creatine Kinase MB 2.9 <6.6 NG/ML Myoglobin 54.5 10.0-92.0 NG/ML Troponin I < 0.028 <0.028 NG/ML B-Type Natriuretic Peptide < 10.0 <100.0 PG/ML Total Protein 7.4 6.4-8.2 GM/DL Albumin 3.9 3.2-4.5 GM/DL Amylase Level 48 25-125 U/L Lipase 22 8-78 U/L Serum Alcohol < 10 <10 MG/DL Influenza Type A (RT-PCR) Not Detected Not Detecte Influenza Type B (RT-PCR) Not Detected Not Detecte SARS-CoV-2 RNA (RT-PCR) Not Detected Not Detecte Urine Color YELLOW Urine Clarity CLEAR Urine pH 6.0 5-9 Urine Specific [place] 1.020 1.016-1.022 Urine Protein NEGATIVE NEGATIVE Urine Glucose (UA) NEGATIVE NEGATIVE Urine Ketones NEGATIVE NEGATIVE Urine Nitrite NEGATIVE NEGATIVE Urine Bilirubin NEGATIVE NEGATIVE Urine Urobilinogen 0.2 < = 1.0 MG/DL Urine Leukocyte Esterase NEGATIVE NEGATIVE Urine RBC (Auto) NEGATIVE NEGATIVE Urine RBC 0-2 /HPF Urine WBC RARE /HPF Urine Squamous Epithelial Cells 0-2 /HPF Urine Crystals NONE /LPF Urine Bacteria TRACE /HPF Urine Casts NONE /LPF Urine Mucus NEGATIVE /LPF Urine Culture Indicated NO Urine Opiates Screen NEGATIVE NEGATIVE Urine Oxycodone Screen NEGATIVE NEGATIVE Urine Methadone Screen NEGATIVE NEGATIVE Urine Propoxyphene Screen NEGATIVE NEGATIVE Urine Barbiturates Screen NEGATIVE NEGATIVE Ur Tricyclic Antidepressants Screen NEGATIVE NEGATIVE Urine Phencyclidine Screen NEGATIVE NEGATIVE Urine Amphetamines Screen NEGATIVE NEGATIVE Urine Methamphetamines Screen NEGATIVE NEGATIVE Urine Benzodiazepines Screen NEGATIVE NEGATIVE Urine Cocaine Screen NEGATIVE NEGATIVE Urine Cannabinoids Screen NEGATIVE NEGATIVE My Orders Orders - AILYN SHELBY DO Cbc With Automated Diff (05/10/23 18:40) Magnesium (05/10/23 18:40) Chest 1 View, Ap/Pa Only (05/10/23 18:40) Ekg Tracing (05/10/23 18:40) Comprehensive Metabolic Panel (05/10/23 18:40) Myoglobin Serum (05/10/23 18:40) Protime With Inr (05/10/23 18:40) Partial Thromboplastin Time (05/10/23 18:40) O2 (05/10/23 18:40) Monitor-Rhythm Ecg Trace Only (05/10/23 18:40) Ed Iv/Invasive Line Start (05/10/23 18:40) Creatine Kinase (05/10/23 18:40) Creatine Kinase Mb (05/10/23 18:40) Lipase (05/10/23 18:40) Amylase (05/10/23 18:40) Bnp [place] (05/10/23 18:40) Fibrin Degradation Products (05/10/23 18:40) Troponin I [place] (05/10/23 18:40) Nitroglycerin 0.4 Mg Btl 25's (Nitrostat (05/10/23 18:45) Aspirin Chewable Tablet (Baby Aspirin Ch (05/10/23 18:45) Covid 19 Inhouse Test (05/10/23 18:40) Influenza A And B By Pcr (05/10/23 18:40) Alcohol (05/10/23 19:09) Drug Screen Stat (Urine) (05/10/23 19:09) Ua Culture If Indicated (05/10/23 19:09) Ketorolac Injection (Toradol Injection) (05/10/23 20:00) Medications Given in ED Current Medications Medications Dose Ordered Sig/Cristiana Route Start Time Stop Time Status Last Admin Dose Admin Aspirin 324 mg ONCE ONCE PO 05/10/23 18:45 05/10/23 18:46 DC 05/10/23 18:53 324 MG Ketorolac Tromethamine 30 mg ONCE ONCE IVP 05/10/23 20:00 05/10/23 20:01 DC 05/10/23 20:17 30 MG Vital Signs/I&O 05/10/23 05/10/23 18:39 20:27 Temp 37.4 Pulse 75 75 Resp 14 B/P (MAP) 145/105 (118) 139/83 Pulse Ox 96 98 O2 Delivery Room Air Room Air Capillary Refill : Blood Pressure Mean: 118 Progress Note : Progress Note VITALS ON ARRIVAL: TEMP 37.4=99.4,HR 75, RR 14, BP 145/105, O2 SAT 96% ON ROOM AIR GIVEN: -ASPIRIN -TORADOL LABS INCLUDING CBC, CMP, TROPONIN, BNP, COAGULATION STUDIES, D-DIMER, COVID/FLU, WELL EKG AND CXR ORDERED LABS ARE ALL NORMAL, INCLUDING NEGATIVE TROPONIN AND BNP, NEGATIVE D-DIMER, COVID AND FLU NEGATIVE EKG IS NORMAL CXR IS NORMAL 1950--PT STATES "IT'S JUST MY SHOULDER--IT FEELS LIKE SOMEBODY'S SQUEEZING IT ON THE INSIDE" DOES NOT HURT TO MOVE IT. STATES "AND MY HANDS ARE ALWAYS NUMB--I HAVE CARPAL TUNNEL, THEY'RE NOT NUMB NOW" VITALS AT DISMISSAL: BP 139/83, HR 69, RR 13, O2 SAT 95% ON ROOM AIR NO DETERIORATION IN PT'S CONDITION DURING ER STAY SYMPTOMS IMPROVED AT DISMISSAL DISCUSSED TEST RESULTS, ANTICIPATED COURSE, SYMPTOMATIC TREATMENT, NEED FOR FOLLOW UP AND RETURN PRECAUTIONS REVIEWED PRIOR RECORDS INCLUDING ER VISITS, ADMITS/H&P'S/CONSULTS/DISCHARGE SUMMARIES, TESTS/PROCEDURES ECG Initial ECG Impression Date: May 10, 2023 Initial ECG Impression Time: 18:57 Initial ECG Rate: 80 Initial ECG Rhythm: Normal Sinus Initial ECG Intervals: Normal Initial ECG Impression: Normal Initial ECG Comparisson: Unchanged Comment INTERPRETED BY ME Diagnostic Imaging Comments CXR--PER RADIOLOGIST REPORT AT 1908 FINDINGS: The lungs appear clear without focal airspace opacities or consolidation. There are no findings of an effusion. There is no evidence of a pneumothorax. Heart size and mediastinal contours appear appropriate. Pulmonary vascularity appears within normal limits. There is no acute or suspicious osseous abnormality demonstrated. IMPRESSION: No radiographic evidence of an acute cardiopulmonary process. Reviewed: Reviewed by Me Departure Impression Primary Impression: Right shoulder pain Disposition: HOME, SELF-CARE Condition: Stable Departure-Patient Inst. Decision time for Depature: 20:00 Referrals: [facility] (PCP/Family) Primary Care Physician Patient Instructions: Shoulder Pain ED Add. Discharge Instructions: HOME, REST TYLENOL AND MOTRIN NEEDED FOR PAIN FOLLOW UP WITH [facility] IN 2-3 DAYS FOR RECHECK--CALL IN THE MORNING TO SCHEDULE AN APPOINTMENT RETURN TO ER IF SYMPTOMS WORSEN All discharge instructions reviewed with patient and/or family. Voiced understanding. AILYN SHELBY DO May 10, 2023 18:55
[2023-05-10 18:57] LABS: BASOPHILS # (AUTO) 0.1 10^3/uL (0.0-0.1); BASOPHILS % (AUTO) 1 % (0-10); EOSINOPHILS # (AUTO) 0.3 10^3/uL (0.0-0.3); EOSINOPHILS % (AUTO) 4 % (0-10); HEMATOCRIT 45 % (40-54); HEMOGLOBIN 15.4 g/dL (13.3-17.7); LYMPHOCYTES # (AUTO) 2.2 10^3/uL (1.0-4.0); LYMPHOCYTES % (AUTO) 26 % (12-44); MEAN CORPUSCULAR HEMOGLOBIN 33 pg (25-34); MEAN CORPUSCULAR HGB CONC 34 g/dL (32-36); MEAN CORPUSCULAR VOLUME 95 fL (80-99); MONOCYTES # (AUTO) 0.7 10^3/uL (0.0-1.0); MONOCYTES % (AUTO) 8 % (0-12); NEUTROPHILS # (AUTO) 5.2 10^3/uL (1.8-7.8); NEUTROPHILS % (AUTO) 61 % (42-75); PLATELET COUNT 246 10^3/uL (130-400); WHITE BLOOD COUNT 8.5 10^3/uL (4.3-11.0)
[2023-05-10 19:11] LABS: INR 0.9 (0.8-1.4); PROTHROMBIN TIME PATIENT 12.7 SEC (12.2-14.7)
[2023-05-10 19:12] LABS: ALBUMIN 3.9 GM/DL (3.2-4.5); PARTIAL THROMBOPLASTIN TIME 27 SEC (24-35)
[2023-05-10 19:13] LABS: CHLORIDE 102 MMOL/L (98-107); POTASSIUM 4.1 MMOL/L (3.6-5.0); SODIUM 137 MMOL/L (135-145)
[2023-05-10 19:14] LABS: AMYLASE 48 U/L (25-125); CALCIUM 9.3 MG/DL (8.5-10.1)
[2023-05-10 19:15] LABS: GLUCOSE 83 MG/DL (70-105); TOTAL PROTEIN 7.4 GM/DL (6.4-8.2)
[2023-05-10 19:16] LABS: CARBON DIOXIDE 26 MMOL/L (21-32)
[2023-05-10 19:17] LABS: BILIRUBIN,TOTAL 0.3 MG/DL (0.1-1.0)
[2023-05-10 19:18] LABS: ALKALINE PHOSPHATASE 79 U/L (40-136)
[2023-05-10 19:19] LABS: CREATININE SERUM 1.01 MG/DL (0.60-1.30); FIBRIN DEGRADATION PRODUCTS < 0.27 UG/ML (0.00-0.49); GFR ESTIMATED 94
[2023-05-10 19:20] LABS: BUN/CREATININE RATIO 13
[2023-05-10 19:21] LABS: MAGNESIUM 2.2 MG/DL (1.6-2.4)
[2023-05-10 19:22] LABS: ALANINE AMINOTRANSFERASE 50 U/L (0-55)
[2023-05-10 19:23] LABS: CREATINE KINASE 153 U/L (30-200); LIPASE 22 U/L (8-78)
[2023-05-10 19:29] LABS: CREATINE KINASE MB 2.9 NG/ML (<6.6)
[2023-05-10 19:59] LABS: BILIRUBIN,URINE NEGATIVE (NEGATIVE); CLARITY,URINE CLEAR; COLOR,URINE YELLOW; GLUCOSE, URINE (UA) NEGATIVE (NEGATIVE); KETONES,URINE NEGATIVE (NEGATIVE); LEUKOCYTE ESTERASE ,URINE NEGATIVE (NEGATIVE); NITRITE,URINE NEGATIVE (NEGATIVE); PROTEIN,URINE NEGATIVE (NEGATIVE)
[2023-05-10] MEDS ORDERED: KETOROLAC 30 MG/ML VIAL IVP ONE (20:00)
[2023-05-10 20:07] LABS: BACTERIA,URINE TRACE /HPF; RBC,URINE 0-2 /HPF; SQUAMOUS EPITHELIAL CELL,UR 0-2 /HPF; WBC,URINE RARE /HPF
[2023-05-10 20:25] LABS: AMPHETAMINE SCREEN, URINE NEGATIVE (NEGATIVE); BARBITURATE SCREEN URINE NEGATIVE (NEGATIVE); BENZODIAZEPINES SCREEN URINE NEGATIVE (NEGATIVE); CANNABINOID SCREEN, URINE NEGATIVE (NEGATIVE); COCAINE SCREEN URINE NEGATIVE (NEGATIVE); METHADONE STAT NEGATIVE (NEGATIVE); OPIATE SCREEN URINE NEGATIVE (NEGATIVE); OXYCODONE STAT NEGATIVE (NEGATIVE); PROPOXYPHENE STAT NEGATIVE (NEGATIVE); TRICYCLIC ANTIDEPRESSANTS SCRE NEGATIVE (NEGATIVE)
[2023-05-10 20:27] VITALS: BP 139/83
== END 2023-05-10 20:27 | disposition home or self-care (01) ==
LOC: EDUNIT# 18:32 → ER 18:34
DX: M25.511 Pain in right shoulder (principal); E66.9 Obesity, unspecified; F17.210 Nicotine dependence, cigarettes, uncomplicated; Z68.42 Body mass index [BMI] 45.0-49.9, adult; Z20.822 Contact with and (suspected) exposure to COVID-19
CPT/HCPCS: 71045; 80053; 80306; 81000; 82150; 82550; 82553; 83690; 83735; 83874; 83880; 84484; 85025; 85379; 85610; 85730; 87636; 93005; 93041; 99284; G0480; 36415; 80320